=== PATIENT | male | born 1975 | race African-American/Black ===

== ENCOUNTER 2020-09-19 11:25 | Inpatient (IN) | payer OTHER ==
[2020-09-19 12:12] LABS: BASO % 0.5 % (0-2.0); EOS % 1.4 % (0-4.5); HEMATOCRIT 41.7 % (35.4-49); HEMOGLOBIN 13.9 GM/dL (11.7-16.9); LYMPH % 16.6 % (8-40); MCH 29.6 pg (25.7-33.7); MCHC 33.2 g/dl (32.0-35.9); MEAN CELL VOLUME 89.3 fl (80-96); MEAN PLT VOLUME 9.6 fl (7.5-11.1); MONO % 7.7 % (3.8-10.2); NEUT % 73.8 % (42.8-82.8); PLATELET COUNT 256 K/MM3 (134-434); RBC 4.67 M/mm3 (4.00-5.60); RDW 12.9 % (11.9-15.9); WHITE BLOOD COUNT 5.5 K/mm3 (4.0-10.0)
[2020-09-19 12:16] LABS: EPI CELLS 6 /uL (0-25.1); HYALINE CASTS 1 /uL (0-3.1); URINE APPEARANCE CLEAR; URINE BACTERIA 7 /uL (0-1359); URINE BILIRUBIN NEGATIVE (NEGATIVE); URINE COLOR YELLOW; URINE GLUCOSE (UA) NEGATIVE (NEGATIVE); URINE KETONE NEGATIVE (NEGATIVE); URINE LEUK ESTERASE NEGATIVE (NEGATIVE); URINE NITRITE NEGATIVE (NEGATIVE); URINE PROTEIN 1+ (NEGATIVE); URINE RBC 7 /uL (0-23.9); URINE WBC 2 /uL (0-25.8)
[2020-09-19 12:43] LABS: CHLORIDE 104 mmol/L (98-107); POTASSIUM 4.7 mmol/L (3.5-5.1); SODIUM 140 mmol/L (136-145)
[2020-09-19 12:45] LABS: CALCIUM 9.7 mg/dL (8.5-10.1)
[2020-09-19 12:46] LABS: ALBUMIN 4.3 g/dl (3.4-5.0); ANION GAP 4 MMOL/L (8-16); BLOOD UREA NITROGEN 15.9 mg/dL (7-18); CO2 31 mmol/L (21-32); GLUCOSE,RANDOM 87 mg/dL (74-106)
[2020-09-19 12:49] LABS: SGOT/AST 655 U/L (15-37); SGPT/ALT 214 U/L (13-61)
[2020-09-19 12:51] LABS: BILIRUBIN,TOTAL 0.7 mg/dL (0.2-1); TOT PROT 7.9 g/dl (6.4-8.2)
[2020-09-19 12:52] LABS: ALK PHOS 44 U/L (45-117)
[2020-09-19] MEDS ORDERED: LACTATED RINGERS SOLUTION 1000 ML INFUS.BAG IV ONE ×2 (13:27→18:11)
[2020-09-19] MEDS ORDERED: ACETAMINOPHEN 325 MG TABLET (FP) PO PRN (16:31)
[2020-09-19] MEDS ORDERED: SODIUM CHLORIDE 1,000 ML IV SCH (16:45)
[2020-09-20 06:42] LABS: ALBUMIN 3.6 g/dl (3.4-5.0)
[2020-09-20 06:46] LABS: BILIRUBIN,TOTAL 0.5 mg/dL (0.2-1)
[2020-09-20 07:33] LABS: ALK PHOS 47 U/L (45-117); ANION GAP 5 MMOL/L (8-16); BLOOD UREA NITROGEN 12.6 mg/dL (7-18); CALCIUM 9.5 mg/dL (8.5-10.1); CHLORIDE 105 mmol/L (98-107); CO2 30 mmol/L (21-32); GLUCOSE,RANDOM 95 mg/dL (74-106); POTASSIUM 4.2 mmol/L (3.5-5.1); SGOT/AST 570 U/L (15-37); SGPT/ALT 207 U/L (13-61); SODIUM 140 mmol/L (136-145)
[2020-09-20] MEDS: ENOXAPARIN NA (PORCINE) 40 MG/0.4 ML DISP.SYRIN SQ SCH (11:17)
[2020-09-20] MEDS: SODIUM CHLORIDE 1,000 ML IV SCH ×2 (13:00→21:51)
[2020-09-20 13:14] VITALS: BMI 25.4
[2020-09-20] MEDS ORDERED: ONDANSETRON 4 MG/2 ML VIAL IVPUSH PRN (16:31)
[2020-09-20 22:31] VITALS: PULSE 69
[2020-09-21] MEDS: SODIUM CHLORIDE 1,000 ML IV SCH ×2 (01:31→05:43)
[2020-09-21 06:13] VITALS: BP 137/81; TEMP 97.5
[2020-09-21 08:14] LABS: CHLORIDE 106 mmol/L (98-107); POTASSIUM 4.8 mmol/L (3.5-5.1); SODIUM 140 mmol/L (136-145)
[2020-09-21 08:20] LABS: ALBUMIN 3.7 g/dl (3.4-5.0); ANION GAP 5 MMOL/L (8-16); CALCIUM 9.3 mg/dL (8.5-10.1); CO2 29 mmol/L (21-32)
[2020-09-21 08:21] LABS: BLOOD UREA NITROGEN 10.2 mg/dL (7-18); GLUCOSE,RANDOM 80 mg/dL (74-106)
[2020-09-21 08:22] LABS: SGPT/ALT 212 U/L (13-61)
[2020-09-21 08:23] LABS: BILIRUBIN,TOTAL 0.4 mg/dL (0.2-1); TOT PROT 7.1 g/dl (6.4-8.2)
[2020-09-21 08:24] LABS: ALK PHOS 47 U/L (45-117); CREATININE 0.9 mg/dL (0.55-1.3); SGOT/AST 456 U/L (15-37)
[2020-09-21] MEDS: ENOXAPARIN NA (PORCINE) 40 MG/0.4 ML DISP.SYRIN SQ SCH (11:01)
== END 2020-09-21 12:59 | disposition left against medical advice (07) | DRG 558 ==
LOC: JER 11:25 → JERBED 14:46 → J8W 09-20 07:57
PROVIDERS: ADMIT Internal Medicine; ATTEND Internal Medicine
DX: M62.82 Rhabdomyolysis (principal); R74.01 Elevation of levels of liver transaminase levels; F17.210 Nicotine dependence, cigarettes, uncomplicated
CPT/HCPCS: 36415; 76700-TC; 80053; 81003; 82550; 82553; 85025; 99285-25; C9803; U0003